=== PATIENT | female | born 1965 | race Caucasian/White ===

== ENCOUNTER 2017-02-07 09:51 | Emergency (ER) | payer OTHER, MEDICAID ==
[2017-02-07 10:10] VITALS: TEMP 98; O2SAT 96
[2017-02-07] MEDS ORDERED: ONDANSETRON DISINTEGRATING 4 MG TAB PO ONE (10:10)
[2017-02-07 12:12] LABS: COLOR YELLOW; LEUKOCYTE ESTERASE,URINE NEGATIVE (NEGATIVE); NITRITE,URINE NEGATIVE (NEGATIVE)
--- NOTE | 2017-02-07 12:22 | UCPHY ---
H & P Time Seen by Provider: 02/07/17 10:08 Patient Type: Established HPI/ROS: This patient is nonverbal due to severe developmental delay discomfort by her sales planning manager who noticed a very small amount of blood in the patient's diaper. She is uncertain over this coming from. Patient also vomited yesterday evening and this morning as well. The patient has not had a bowel movement for 2 days and in the past she has had issues with constipation. The sales planning manager presumes this is blood from rectum or hemorrhoid. There is no history of inappropriate contact from other people to this patient to the caretakers knowledge. ROS: Limited due to patient's nonverbal state but other than the vomiting the patient has been behaving normally. She does have less appetite over the past 12 hours per sales planning manager. 7 point ROS limited but otherwise negative per sales planning manager. Past Medical/Surgical History: Severe developmental delay with nonverbal status. Previous episodes of constipation. Smoking Status: Never smoked Physical Exam: General Appearance: Abnormal face ease consistent with severe developmental delay history. Alert, no distress. Eyes: Pupils equal and round no pallor or injection. ENT, Mouth: Mucous membranes moist. Respiratory: There are no retractions, lungs are clear to auscultation. Cardiovascular: Regular rate and rhythm. Gastrointestinal: Abdomen is soft and nontender, no masses, bowel sounds normal. Rectal exam: No external hemorrhoids. Brown stool-no fecal impaction guaiac negative : No genital trauma is appreciated. No source of blood is appreciated on external exam. Neurological: Alert, moves all extremities with full strength. Cranial nerves 2-12 grossly intact. Skin: Warm and dry, no rashes. Extremities are symmetrical, full range of motion. DIFFERENTIAL DIAGNOSIS: After history and physical exam differential diagnosis was considered for UTI, vaginal spotting, exam rules out rectal source of bleeding Constitutional: Initial Vital Signs Temperature (C) 36.6 C 02/07/17 10:07 Heart Rate 76 02/07/17 10:07 Respiratory Rate 18 02/07/17 10:07 Blood Pressure 109/62 02/07/17 10:07 O2 Sat (%) 96 02/07/17 10:07 O2 Delivery Mode Room Air Allergies/Adverse Reactions: No Known Allergies Allergy (Verified 04/23/13 11:54) Home Medications: Medication Instructions Recorded CARBAMAZEPINE [Carbamazepine Xr] 400 mg PO 04/23/13 Glycerin [Colace] 1 each RC 04/23/13 Sertraline HCl [Zoloft] 50 mg PO 04/23/13 Thyroid 65 mg PO 04/23/13 traZODone [traZODONE 50MG (*)] 50 mg PO 04/23/13 MDM/Departure - MDM Diagnostics: Stool is guaiac negative Urinalysis is normal Medications Given: Discontinued Medications Ondansetron HCl (Zofran Odt) 4 mg PO EDNOW ONE Stop: 02/07/17 10:11 Last Admin: 02/07/17 10:25 Dose: 4 mg ED Course/Re-evaluation: Discussion: I suspect this patient has social bleeding may be vaginal though nothing overt on exam. Ruled out UTI, no evidence of hemorrhoid or GI bleed. Our nurse was unable to perform a straight cath so a Slade cath was placed. Discussion: Benign evaluation here in terms of negative urinalysis, and no external genital abnormalities or trauma noted and we ruled out UTI. We recommend follow up with OBGYN for further evaluation if bleeding does not resolved given there is very minimal spotting in the diaper. We also recommended Fleet's enema stool softeners for constipation. - Depart Disposition: Home, Routine, Self-Care Clinical Impression: Possible vaginal bleeding Constipation Qualifiers: Constipation type: unspecified constipation type Qualified Code(s): K59.00 - Constipation, unspecified Condition: Good Instructions: Constipation (ED) Additional Instructions: Diagnosis: Constipation The source of the small amount of blood is unclear. It may be vaginal spotting. Today there is no blood in the stool or in her urine. She does not have urinary tract infection. She does not have fecal impaction currently. Plan: Fleet's enema and stool softeners at home. Call OBGYN physician listed to arrange follow-up appointment for further evaluation Go to the emergency department for any significant worsening despite treatment plan Referrals: Jennifer Du MD [Primary Care Provider] - As per Instructions Aga Venegas MD [Medical Doctor] - As per Instructions - PQRS PQRS Measurement: NA
[2017-02-07 12:48] VITALS: BP 100/65; PULSE 85; RESP 20
== END 2017-02-07 12:53 | disposition home or self-care (01) ==
LOC: CED 09:51
DX: Z03.89 Encounter for observation for other suspected diseases and conditions ruled out (principal); R62.50 Unspecified lack of expected normal physiological development in childhood
CPT/HCPCS: 81003-PO; 82270-PO; 99214-PO; G0463-PO

== ENCOUNTER → 2018-04-01 | Outpatient (CLI) | payer OTHER, MEDICAID | LOC: CIMAGING 16:08 | PROVIDERS: ATTEND Family Medicine | DX: M25.552 Pain in left hip (principal) | CPT/HCPCS: 73502-PO ==

== ENCOUNTER → 2019-01-01 | Outpatient (CLI) | payer OTHER, MEDICAID | LOC: CIMAGING 09:58 | PROVIDERS: ATTEND Family Medicine | DX: M79.645 Pain in left finger(s) (principal) | CPT/HCPCS: 73140-PO ==